=== PATIENT | male | born 1990 | race Two or more races ===

== ENCOUNTER 2018-08-12 16:09 | Emergency (ER) | payer MEDICAID ==
[~2018-08-12] VITALS: Ht 180.3 cm; Wt 72.6 kg
[2018-08-12 16:31] VITALS: BP 123/79
== END 2018-08-12 20:30 | disposition home or self-care (01) ==
LOC: ER 16:09
DX: M54.5 Low back pain (principal); M62.830 Muscle spasm of back
CPT/HCPCS: 72100